=== PATIENT | male | born 1975 | race Caucasian/White ===

== ENCOUNTER 2019-05-21 15:02 | Outpatient (CLI) | payer SELFPAY ==
--- NOTE | 2019-05-21 15:08 | US_ITS ---
WS: [id number] ULTRASOUND SOFT TISSUES LEFT inguinal canal. HISTORY: ?LEFT INGUINAL HERNIA/PAIN TO LEFT GROIN COMPARISON: None available. TECHNIQUE: 2-D and color Doppler imaging is submitted. There is soft tissue protrusion along the LEFT inguinal canal felt to be omental fat herniating along the inguinal canal. There is no peristalsing bowel. The hernia does not extend into the scrotum. US/US soft tissue head neck 06249 IMPRESSION: LEFT inguinal hernia containing fat only.
== END 2019-05-21 15:03 | disposition home or self-care (01) ==
LOC: RAD 15:06
PROVIDERS: Visit Provider Nurse Practitioner Family
DX: K40.90 Unilateral inguinal hernia, without obstruction or gangrene, not specified as recurrent (principal)
CPT/HCPCS: 76536

== ENCOUNTER 2019-06-04 05:39 | Day surgery (SDC) | payer SELFPAY ==
[2019-06-04] VITALS (7 sets, daily range): BP systolic 129–147; BP diastolic 85–93; PULSE 65–94; RESP 18–22; TEMP 36.3–36.6; O2SAT 96–100; BMI 23.4
[2019-06-04] MEDS: sodium chloride 0.9% 1,000 ML 30 ML IV (06:34)
--- NOTE | 2019-06-04 06:37 | ANES.PREANE2 ---
Pre-Anesthetic Assessment Pre-Anesthetic Assessment: Height/Weight: Height 1.83 m Weight 78.471 kg Temp Pulse Resp BP Pulse Ox 97.8 F 65 18 140/93 98 06/04/19 06:24 06/04/19 06:24 06/04/19 06:24 06/04/19 06:24 06/04/19 06:24 Preop Diagnosis: Left inguinal hernia Proposed Procedure: Operation Date: 06/04/19 09:45 Proposed Procedures p Laparoscopic Inguinal Hernia Repair w/Mesh 77766 K40.90(Left) - David Smith MD Last intake: Intake Last Liquid Date 06/03/19 Last Liquid Time 20:30 Last Solid Date 06/03/19 Social: Social History: Tobacco Packs per day: 1/2 Pack years: 5 Comment: quit 10y Exam: Pre-Anes Outpt Exam: alert, oriented x 3, clear to auscultation bilaterally and regular rate & rhythm Airway: Submandibular: WNL Cervical ROM: WNL MP: 1 Dentition: Full Additional comments: upper dentures CV/HEM: Comments: 2 blocks/2FOS e9onian angina/SOUSA Anesthetic Plan: ASA status: 2 Anesthesia: General Meds/Allergies Current Medications: Current Medications Generic Name Dose Route Start Last Admin Trade Name Freq PRN Reason Stop Dose Admin Sodium Chloride 1,000 mls @ 30 ml s/hr 06/04/19 06:30 06/04/19 06:34 Sodium Chloride 0.9% IV 06/05/19 06:29 30 mls/hr .Q24H KAUR Administration PFSH Anesthesia PFSH: Social History Smoking and tobacco status: former smoker Alcohol intake: never Data Anesthesia Cardiac Studies: No Data to Display
--- NOTE | 2019-06-04 07:07 | W.PM.OPSUD ---
Surgery/Procedure H&P Update DATE OF PROCEDURE: June 04, 2019 DATE H&P PERFORMED: 05/27/19 H&P UPDATE INFORMATION: I have reviewed H&P completed within last 30 days, I have examined patient prior to procedure and No changes to prior documentation PREOP DIAGNOSIS: Left inguinal hernia PRIMARY INDICATION FOR PROCEDURE: The same PLANNED PROCEDURE: Operation Date: 06/04/19 09:45 Proposed Procedures p Laparoscopic Inguinal Hernia Repair w/Mesh 99658 K40.90(Left) - David Smith MD
[2019-06-04] MEDS: clindamycin 900 MG/50 ML PREMIX 100 MG IV (07:19)
--- NOTE | 2019-06-04 08:56 | PM.OP ---
Operative Report Date of procedure: June 04, 2019 Pre-op Diagnosis: Left inguinal hernia Post-op diagnosis: same (Indirect component and lipoma of the cord) Procedure Done: Laparoscopic left inguinal hernia repair with mesh placement and laparoscopic excision of lipoma of the cord Implants: Left large 3D mesh Specimens removed/disposition: Lipoma of the cord Surgeon: David Smith English Language Arts Teacher: Surgical veto Galdamez Circulating nurse Naima Anesthesia: General (computer aided design technician Peng) Estimated blood loss (mL): 10 Condition: stable Disposition: same day Brief History: This is a pleasant 43 years old gentleman presented to my office with symptomatic left inguinal hernia, after thorough history physical examination and reviewing the chart I did budget counselor the patient for laparoscopic left inguinal hernia repair with mesh placement possible open. Informed consent per chart Procedure: Procedure: Transabdominal preperitoneal (JERMAINE) approach. Patient was identified in the holding area,patient was transferred to the operating room were he was placed in supine position, with both arms were tucked,antibiotic was given with induction, endotracheal tube was placed per anesthesia, Villanueva catheter was inserted by the circulating nurse and revealed clear urine, prep and drape of the abdomen was done under the usual sterile technique as well as the scrotal area. Time-out was done verifying the patient's name/date of /planned procedure destination after the procedure, all were in agreement. SCDs confirmed to be functioning, preoperative antibiotics administered per protocol, and beta amy protocol was confirmed. A vertical skin incision of 1.2 cm was made with 11 blade knife through the supra umbilicus , incision was carried down to the subcutaneous tissue and deepened to identify the anterior fascia, two stay sutures were applied to the fascia, and safe entrance to the abdominal cavity was achieved, a Costa trocar technique safe entry to the abdominal cavity was achieved verified by using 10 mm zero degree laparoscopy, switched to a 30 degrees scope,low flow followed by a higher flow of CO2 gas up to 15 mmHg. There was no evidence of injury to intra-abdominal structures from the port entry, attention was deviated to both groins, there was a moderate indirect hernia defect with herniation of peritoneum and preperitoneal fat was noted on the left side, two 5 mm ports were placed on the right side of the abdomen slightly above the level of the umbilicus and another one 1 handbreadth below, under direct visualization Exparel was injected at all trocar sites prior to incisions. The peritoneum above the level of the iliopubic tract was incised to the right of the midline and dissection was performed to create a preperitoneal space medial to lateral aspect up to anterior superior iliac spine on the left side. Dissection was continued onto the medial aspect and the left spermatic was identified, there was evidence of indirect inguinal hernia the sac was dissected including a large lipoma of the cord and excised and sent for pathology. Noticed during dissection there was extensive scar tissues at the left lateral wall As it applied medial to the left inferior epigastric vessels/dissection was performed to clear the space lateral to the spermatic cord and dorsomedial to it. 5 mm clips were used for hemostasis towards the lateral side of the pelvic wall Then a large left 3-D mesh was rolled and placed into the abdominal cavity through the Costa port,after the mesh was introduced it was positioned to lie in the myopectineal orifice and the mesh was unrolled and this covered the entire my myope pectineal orifice. Intra-abdominal pressure was dropped to 12 mmHg to help placement of the mesh good position On the lateral aspect of the mesh extended up to the anterior superior iliac spine on the medial aspect the mesh crossed the midline onto the rightside, then using absorbable tacks,placed above the iliopubic tract onto the rectus abdominis muscle on the medial aspect and also to the lateral abdominal wall superomedial to the sacroiliac spine, then the mesh was also anchored to the pubis and the Flavio's ligament inferiorly. The peritoneal leaflets were then brought together to cover the mesh and isolated from the other viscera, extra tacks were used to secure the peritoneum in good position. Was a small defect of the peritoneum that was approximated using 5 mm clips Final look demonstrated good hemostasis and the mesh in good position A total of 20 mL Exparel 40 ml Normal saline 20 ml bupivacaine 0.25% were injected at the remaining of the tacks site and trocar sites as well Final look demonstrated good hemostasis, then the abdomen was desufflated while holding the peritoneum to make sure there is no herniation blue the mesh. All ports were removed. Then the fascia on the supra umbilical fascial defect was closed using 0 Vicryl under direct visualization using fascial closure device Earle Patel. All skin incisions were closed with 4-0 Monocryl subcuticular suture and Dermabond was applied. The patient tolerated the procedure well, Villanueva catheter was taken out ,got extubated and was transferred to the recovery area in stable condition All counts of instruments, needles and sponges were completed I was present for the whole entire procedure
--- NOTE | 2019-06-04 09:23 | SUR.PHASEI ---
0963 PT MORE ALERT ON RA TRIAL, NOW, PT VERBALIZED APPROP VSS ABD SOFT WITH 3 SITES WITH DERMABOND D/I
[2019-06-04] MEDS: HYDROcodone-acetaminophen 5-325 mg Tablet 1 TAB PO (10:01)
== END 2019-06-04 10:42 | disposition home or self-care (01) ==
PROVIDERS: PCP Nurse Practitioner Family; Visit Provider Surgery
PROC: (CPT 49650; principal; 2019-06-04 07:00)
DX: K40.90 Unilateral inguinal hernia, without obstruction or gangrene, not specified as recurrent (principal); D17.6 Benign lipomatous neoplasm of spermatic cord; Z87.891 Personal history of nicotine dependence; Z82.49 Family history of ischemic heart disease and other diseases of the circulatory system; Z83.3 Family history of diabetes mellitus
CPT/HCPCS: 49650; 12345; 51702; 88304; C1781; C9290; J0131; J1100; J2001; J2405; J2704; J2710; J3010; J3490; J7030